=== PATIENT | female | born 1995 | race Caucasian/White ===

== ENCOUNTER 2021-02-09 02:55 | Emergency (ER) | payer SELFPAY ==
[~2021-02-09] VITALS: Ht 167.6 cm; Wt 72.6 kg
[2021-02-09] MEDS ORDERED: SODIUM CHLORIDE 0.9% 1000ML 1,000 ML IV ONE ×2 (03:00→05:15)
[2021-02-09] MEDS ORDERED: PROMETHAZINE 12.5MG/ NACL 0.9% 12.5 MG/50 ML BAG IV ONE (03:00)
[2021-02-09 03:31] LABS: BASOPHILS # (AUTO) 0.2 (0.0-0.1); BASOPHILS % 0.7 % (0.0-1.0); EOSINOPHILS # (AUTO) 0.1 (0.0-0.4); EOSINOPHILS % 0.3 % (0.0-6.0); HEMATOCRIT 43.5 % (34.2-44.1); HEMOGLOBIN 14.9 g/dL (12.0-16.0); LYMPHOCYTES # (AUTO) 2.9 (1.0-3.2); LYMPHOCYTES % 13.3 % (18.0-39.1); MEAN CORPUSCULAR HEMOGLOBIN 30.1 pg (28-32); MEAN CORPUSCULAR HGB CONC 34.3 g/dL (31-35); MEAN CORPUSCULAR VOLUME 87.9 fL (81-99); MONOCYTES % 4.5 % (4.4-11.3); NEUTROPHILS # (AUTO) 17.4 (2.1-6.9); NEUTROPHILS % 80.6 % (38.7-80.0); PLATELET COUNT 341 x10e3/uL (140-360); RED BLOOD COUNT 4.95 x10e6/uL (3.6-5.1); RED CELL DISTRIBUTION WIDTH 12.5 % (11.7-14.4)
[2021-02-09] MEDS ORDERED: ONDANSETRON HCL INJ 2MG/ML 2ML 2 MG/ML VIAL IV STA ×2 (03:42→07:18)
[2021-02-09 03:44] LABS: AMYLASE 61 U/L (25-125); LIPASE 10 U/L (8-78)
[2021-02-09 03:46] LABS: ALBUMIN 4.6 g/dL (3.5-5.0); ALBUMIN/GLOBULIN RATIO 1.3 (0.8-2.0); ANION GAP 23.8 mmol/L (8-16); CALCIUM 9.2 mg/dL (8.4-10.2); CREATININE, SERUM 1.04 mg/dL (0.57-1.11); POTASSIUM 3.8 mmol/L (3.5-5.1)
[2021-02-09] MEDS ORDERED: ONDANSETRON HCL INJ 2MG/ML 2ML 2 MG/ML VIAL ONE (03:51)
[2021-02-09] MEDS ORDERED: LORAZEPAM INJ 2 MG/ML VIAL IV ONE (04:15)
[2021-02-09] MEDS ORDERED: LORAZEPAM INJ 2 MG/ML VIAL ONE (04:15)
[2021-02-09] MEDS ORDERED: IOPAMIDOL 300MG/ML 100 ML INFUS..BTL IV ONE ×2 (04:17→04:18)
[2021-02-09] MEDS ORDERED: SODIUM CHLORIDE 0.9% 50ML 50 ML ONE (04:17)
[2021-02-09] MEDS ORDERED: IOPAMIDOL 370 MG/ML 200 ML INFUS..BTL INJ ONE (04:18)
[2021-02-09] MEDS ORDERED: SODIUM CHLORIDE 0.9% 1000ML 1,000 ML ONE ×2 (05:12→05:49)
[2021-02-09] MEDS ORDERED: SODIUM CHLORIDE 0.9% 1000ML 1,000 ML IV STA (05:29)
[2021-02-09] MEDS ORDERED: DIPHENHYDRAMINE HCL INJ 50 MG/ML VIAL IV ONE (05:45)
[2021-02-09] MEDS ORDERED: CEFTRIAXONE 1 GM in SODIUM CHLORIDE 0.9% 50ML 50 ML IV ONE (05:45)
[2021-02-09] MEDS ORDERED: HALOPERIDOL LACTATE 5 MG/ML VIAL IV ONE (05:45)
[2021-02-09] MEDS ORDERED: CEFTRIAXONE 1 GM VIAL ONE (05:49)
[2021-02-09 05:50] LABS: COLOR,URINE YELLOW (YELLOW)
[2021-02-09 05:51] LABS: CLARITY,URINE SL CLOUDY (CLEAR)
[2021-02-09 05:52] LABS: KETONES,URINE >=160 (NEGATIVE); LEUKOCYTE ESTERASE ,URINE NEGATIVE (NEGATIVE); NITRITE,URINE NEGATIVE (NEGATIVE)
[2021-02-09 05:53] LABS: AMPHETAMINES SCREEN,URINE NEGATIVE (NEGATIVE); BENZODIAZEPINES SCREEN,URINE POSITIVE (NEGATIVE); PHENCYCLIDINE SCREEN,URINE NEGATIVE (NEGATIVE); URINE UROBILINOGEN 0.2 mg/dL (0.2 - 1)
[2021-02-09 05:54] LABS: PROTEIN,URINE DIPSTICK TRACE (NEGATIVE)
[2021-02-09 06:17] LABS: BACTERIA,URINE MANY /HPF; EPITHELIAL CELLS,URINE MODERATE /LPF; RBC,URINE 0-5 /HPF (0-5); WBC,URINE (MAN) 0-5 /HPF (0-5)
[2021-02-09 08:25] VITALS: BP 122/75
== END 2021-02-09 09:07 | disposition home or self-care (01) ==
LOC: ER 03:17
DX: R11.2 Nausea with vomiting, unspecified (principal); K29.70 Gastritis, unspecified, without bleeding; F41.9 Anxiety disorder, unspecified
CPT/HCPCS: 36415; 71045; 74177; 80053; 80307; 81001; 82150; 83605; 83690; 84702; 85025; 87040; 87086; 93005; 99284; C9113; J0696; J1200; J1630; J2060; J2405; J2550; J7030; Q9967; U0002